=== PATIENT | male | born 1960 | race Caucasian/White ===

== ENCOUNTER 2020-08-12 09:00 | Day surgery (SDC) | payer MEDICAID, SELFPAY ==
[2020-07-10 10:05] VITALS: BMI 38.9
[2020-08-12 09:22] VITALS: BP 159/91; PULSE 66; RESP 16; TEMP 36.8; O2SAT 100
[2020-08-12] MEDS: Lactated Ringers 1,000 ML 50 ML IVCONT (09:35)
[2020-08-12 09:36] VITALS: BP 153/82
--- NOTE | 2020-08-12 09:51 | HO.ANESPROP2 ---
[facility] Past Medical History Medical History HTN (hypertension) KE on CPAP Thyroid nodule Surgical History Surgical History Hx of colonoscopy Social History Social History Advance Directives: No Advance Directives Information Provided: No Advance Directives on File: No Recently lost weight without trying: No Eating poorly because of decreased appetite: No Nutrition Risks: No Nutritional Risk Meds Allergies Allergy/AdvReac Type Severity Reaction Status Date / Time No Known Allergies Allergy Verified 08/12/20 09:14 Home Medications Medication Instructions Recorded Confirmed Last Taken Type lisinopril 30 mg PO DAILY 07/10/20 07/10/20 Unknown History Exam Exam Date and Time: August 12, 2020 0951 Height,Weight and Vital Signs: Height 5 ft 10 in Weight 122.924 kg Last Vital Signs Temp 98.2 F 08/12/20 09:22 Pulse 66 08/12/20 09:22 Resp 16 08/12/20 09:22 BP 153/82 H 08/12/20 09:36 Pulse Ox 100 08/12/20 09:22 Airway Mallampati Class: III (Full diaz, large neck) TM Dist: >3cm Neck ROM: Full Loose/Missing/Broken Teeth: No Heart: RRR Lungs: CTA Assessment and Plan Assessment Anesthesia Assessment: Anesthesia Plan Discussed, Smoking Cess. Discussed and Chart Reviewed Final Anesthetic Review NPO: Yes ASA Class: III Final Preanesthetic Review: Meds/Allgs Chart Reviewed, Consent Obtained/Reviewed and Anes Risks/Benef Reviewed Patient Risk: Intermediate Procedure Risk: Low Anesthetic Plan Anesthetic Plan: MAC: Disposition: Standard PACU
--- NOTE | 2020-08-12 10:05 | MHC.SHP ---
Pre-Procedural Eval Section A Date of Service: 08/12/20 Section B Chief Complaint: screening Details of Present Illness: see H&P no changes Relevant Family History (Specify if Yes): No Relevant Social History: None Present Medications: see Short Stay Collaborative assessment Medical History: No relevant PMH History of Previous Operations: No relevant previous surgery Allergies: Allergies Allergy/AdvReac Type Severity Reaction Status Date / Time No Known Allergies Allergy Verified 08/12/20 09:14 Review of Systems Sugical H&P ROS: Negative: Constitution, Cardiovascular, Respiratory, Neurological, Psychiatric, Hem-Onc, Allergic/Immunologic, Gastrointestinal, Genitourinary, Musculoskeletal, Integumentary, Endocrine and Eyes/Ears/Nose/Throat Exam Surgical H&P Exam: Normal: HEENT, Normal: Heart, Normal: Lungs, Normal: Extremities, Normal: Abdomen, Normal: Skin and Normal: Neurological Plan Diagnosis/Plan: Unchanged I have reviewed the history and physical and performed a pertinent physical examination on my patient. No changes have occurred unless specified.
[2020-08-12 10:37] VITALS: BP 138/72; PULSE 59; RESP 18; TEMP 36.4; O2SAT 97
--- NOTE | 2020-08-12 10:42 | PM.OP ---
Brief Operative Note Date of Service: 08/12/20 Pre-op diagnosis: screening Post-op diagnosis: same Procedure: colonoscopy Surgeon: Zia Barajas Anesthesia: MAC Estimated blood loss (mL): 0 Pathology: none sent Condition: stable Disposition: PACU
[2020-08-12 10:52] VITALS: BP 166/78; PULSE 57; RESP 18; TEMP 36.4; O2SAT 98
--- NOTE | 2020-08-12 12:20 | OP_ITS ---
SURGEON: Zia Barajas MD INDICATIONS: Family history of colon cancer. PREOPERATIVE DIAGNOSIS: POSTOPERATIVE DIAGNOSIS: PROCEDURE PERFORMED: Colonoscopy to the cecum. ESTIMATED BLOOD LOSS: COMPLICATIONS: ANESTHESIA: Monitored anesthesia care. ASSISTANTS: SPECIMENS: DESCRIPTION OF PROCEDURE: History and physical performed. The risks and benefits of the procedure were explained to the patient. Informed consent was obtained. The patient was placed in left lateral decubitus position. A digital rectal exam was performed and was found to be normal. The Olympus pediatric video colonoscope was introduced into the rectum and advanced to the cecum without difficulty. The cecum was identified by transillumination, palpation, and identification of ileocecal valve. Examination was performed. The scope was removed. He tolerated the procedure well and was transferred to recovery area in stable condition. FINDINGS: The terminal ileum was not examined. The visualized colonic mucosa was normal. The quality of prep was good. No polyps were identified. There was mild sigmoid diverticulosis and diverticulosis scattered throughout the remainder of the colon. Retroflexed examination showed internal hemorrhoids. IMPRESSION: Diverticulosis. RECOMMENDATION: 1. Follow up as needed. 2. Repeat colonoscopy is recommended in 5 years because of family history of colon cancer and personal history of colon polyps. MD GENARO Neumann/TAMIKA / [id number]
== END 2020-08-12 11:22 | disposition home or self-care (01) ==
PROVIDERS: PCP Internal Medicine; Visit Provider Internal Medicine Gastroenterology
PROC: 0DJD8ZZ Inspection of Lower Intestinal Tract, Via Natural or Artificial Opening Endoscopic (ICD-10-PCS; CPT 45378; principal; 2020-08-12 10:10)
DX: Z12.11 Encounter for screening for malignant neoplasm of colon (principal); Z80.0 Family history of malignant neoplasm of digestive organs; Z86.010 Personal history of colon polyps; K57.30 Diverticulosis of large intestine without perforation or abscess without bleeding; K64.8 Other hemorrhoids; I10 Essential (primary) hypertension; G47.33 Obstructive sleep apnea (adult) (pediatric); Z79.899 Other long term (current) drug therapy; Z99.89 Dependence on other enabling machines and devices
CPT/HCPCS: 45378; J2405; J2765